=== PATIENT | male | born 1990 | race Hispanic/Latino ===

== ENCOUNTER 2016-05-24 15:37 | Emergency (ER) | payer OTHER ==
[~2016-05-24] VITALS: Ht 182.9 cm; Wt 134.9 kg
[~2016-05-24 15:37] MED LIST: CATAPRES0.1 MG PO; CLARINEX5 MG PO; CLONIDINE HCL0.2 MG PO; K-Dur PO; Levaquin PO; Lopressor PO; NAPROSYN500 MG PO; NOHOMEMEDS; NORCO 5/3251 TABLET PO; OXAYDO5 MG PO; Percocet 5/325,Endoc PO; TYLENOL REGULA325 MG PO; VICODIN,LORT1 TABLET PO; ZOFRAN4 MG PO
[2016-05-24] MEDS ORDERED: ALPRAZOLAM1 MG PO (15:56)
[2016-05-24] MEDS ORDERED: LISINOPRIL10 MG PO (15:56)
[2016-05-24] MEDS ORDERED: CITALOPRAM HBR10 MG PO (15:57)
[2016-05-24] MEDS ORDERED: NARCAN4 MG NS (19:51)
[2016-05-24 20:30] VITALS: BP 124/75
== END 2016-05-24 21:12 | disposition left against medical advice (07) ==
LOC: EME 15:37
DX: T40.1X1A Poisoning by heroin, accidental (unintentional), initial encounter (principal); Z53.20 Procedure and treatment not carried out because of patient's decision for unspecified reasons; I10 Essential (primary) hypertension; F17.200 Nicotine dependence, unspecified, uncomplicated; Z88.6 Allergy status to analgesic agent
CPT/HCPCS: J2310

== ENCOUNTER 2016-10-06 02:31 | Emergency (ER) | payer OTHER ==
[~2016-10-06] VITALS: Ht 182.9 cm; Wt 141.1 kg
[~2016-10-06 02:31] MED LIST changes: +ALPRAZOLAM1 MG PO; +CITALOPRAM HBR10 MG PO; +LISINOPRIL10 MG PO; +NARCAN4 MG NS
[2016-10-06 03:36] LABS: EOSINOPHIL (%) 1.4 % (0-5); EOSINOPHIL COUNT 0.1 K/uL (0-0.3); HEMATOCRIT 41.4 % (38.0-50.0); IMMATURE GRANULOCYTE (%) 0.2 % (0.0-0.7); INSTRUMENT ABS NEUTROPHIL CT 4.7 K/uL; LYMPHOCYTE COUNT 1.1 K/uL (1.0-2.8); MCH 29.5 PG (29.0-34.0); MCHC 32.4 G/DL (30.0-36.0); MEAN PLAT.VOLUME 9.8 uM^3 (9.0-12.4); MONOCYTE (%) 7.4 % (3-12); MONOCYTE COUNT 0.5 K/uL (0-0.8); NEUTROPHIL (%) 73.8 % (45-76); NEUTROPHIL COUNT 4.7 K/uL (1.8-6.4); PLATELET COUNT 225 K/uL (156-360); RBC DIS.WIDTH-CV 13.8 % (11.8-14.6); RBC DIS.WIDTH-SD 46.2 % (39-53); RED BLOOD COUNT 4.55 M/uL (4.00-5.50); WHITE BLOOD COUNT 6.4 K/uL (4.1-10.2)
[2016-10-06 03:48] LABS: CHLORIDE 107 mEq/L (99-109); POTASSIUM 3.7 mEq/L (3.7-5.4); SODIUM 143 mEq/L (136-147)
[2016-10-06 03:50] LABS: GLUCOSE 97 mg/dL (70-99)
[2016-10-06 03:51] LABS: ANION GAP 11 MEQ/L (2-14)
[2016-10-06 03:53] LABS: SERUM ETHYL ALCOHOL < 10 mg/dL
[2016-10-06 03:54] LABS: GFR ESTIMATE (CALCULATED) > 59 mL/min/
[2016-10-06 03:55] LABS: UREA NITROGEN (BUN) 15 mg/dL (9-23)
[2016-10-06 05:16] VITALS: BP 115/76
== END 2016-10-06 05:17 ==
LOC: EME 02:31
PROVIDERS: Emergency Medicine
DX: T40.1X1A Poisoning by heroin, accidental (unintentional), initial encounter (principal); R51 Headache; R11.10 Vomiting, unspecified; I10 Essential (primary) hypertension; F32.9 Major depressive disorder, single episode, unspecified; F17.200 Nicotine dependence, unspecified, uncomplicated; F41.9 Anxiety disorder, unspecified
CPT/HCPCS: 80048; 85025; 99281; 99283; G0480; J2310

== ENCOUNTER 2016-12-27 13:51 | Emergency (ER) | payer OTHER ==
[~2016-12-27] VITALS: Ht 182.9 cm; Wt 141.8 kg
[2016-12-27] MEDS ORDERED: KEFLEX500 MG PO (16:23)
[2016-12-27] MEDS ORDERED: MOTRIN600 MG PO (16:23)
[2016-12-27] MEDS ORDERED: BACTRIM,SEPT1 TABLET PO (16:27)
[2016-12-27 17:31] VITALS: BP 133/80
== END 2016-12-27 17:33 | disposition home or self-care (01) ==
LOC: EME 13:51
DX: L03.113 Cellulitis of right upper limb (principal); I10 Essential (primary) hypertension; Z86.14 Personal history of Methicillin resistant Staphylococcus aureus infection
CPT/HCPCS: 73130; 99281; 99283; J0696